=== PATIENT | male | born 1935 | race Caucasian/White ===

== ENCOUNTER 2018-05-14 19:59 | Emergency (ER) | payer MEDICARE, OTHER, SELFPAY ==
[2018-05-14 20:00] VITALS: BP 152/91; PULSE 69; PULSE 71; RESP 17; RESP 18; TEMP 36.9; O2SAT 96; O2SAT 97; BMI 27.3
--- NOTE | 2018-05-14 21:23 | CT_ITS ---
STUDY: CT BRAIN WITHOUT CONTRAST REASON FOR EXAM: Male, 82 years old. Confusion RADIATION DOSAGE (If Supplied By Facility): CTDIvol = ( 60.81 ) mGy, DLP = ( 998.67 ) mGycm TECHNIQUE: Transaxial CT imaging of the brain was performed without administration of intravenous contrast material. Individualized dose optimization techniques were used for this CT. COMPARISON: None. FINDINGS: Normal soft tissue structures. Normal calvarium. Prominent size ventricles and extra-axial spaces with mild atrophy. Bilateral white matter microangiopathic ischemic changes of the cerebral hemispheres. Normal basal ganglia and thalami. Normal brainstem. 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 There is no intracranial hemorrhage. There are no findings of an acute ischemic infarction. Normal visualized paranasal sinuses. CT/Brain/Head without Contrast IMPRESSION: Age-related and chronic changes of the brain. Electronically Signed: Osvaldo Dotson DO at 22:07 EST Tel [phone], Service support ,
--- NOTE | 2018-05-14 21:23 | EKG12_ITS ---
Test Reason : Blood Pressure : / mmHG Vent. Rate : 055 BPM Atrial Rate : 055 BPM P-R Int : 208 ms QRS Dur : 102 ms QT Int : 446 ms P-R-T Axes : 065 077 040 degrees QTc Int : 426 ms Sinus bradycardia with marked sinus arrhythmia Low voltage QRS Borderline ECG Confirmed by NAZARIO FORTE, MATTEO ([id number]), web content editor DINO POSEY ([id number]) on 05/17/2018 8:23:45 AM Referred By: STACEY Confirmed By:MATTEO LANGE MD
[2018-05-14 21:40] LABS: Squamous Epithelial Cells - UA 0 SEEN /hpf (0-5)
[2018-05-14 21:50] LABS: Color, Urine Yellow (Yellow); Glucose, Dipstick Normal (Normal); Ketone-Dipstick 5 mg/dl (Negative); Leukocyte Esterase-Dipstick 25 /ul (Negative); Nitrite-Dipstick Negative (Negative); Occult Blood-Urine 25 /ul (Negative); Protein-Dipstick 15 mg/dl (Negative); Specific Gravity, Urine 1.025 (1.002-1.030); Urine Bilirubin Dipstick Negative (Negative); Urine Clarity Clear (Clear); Urine Urobilinogen 1 mg/dl (Normal)
[2018-05-14 21:51] LABS: Absolute Neutrophil Count 4.9 X10^3/uL (2.0-7.7); Basophil# 0.02 X10^3/uL; Basophil% 0.3 % (0-1); Eosinophil# 0.11 X10^3/uL; Eosinophils% 1.5 % (0-5); Hematocrit 38.6 % (40-54); Hemoglobin 12.9 g/dl (13.0-16.5); Lymphocyte % 20.9 % (19-41); Mean Corp Hgb Conc 33.4 g/gl (32-36); Mean Corpuscular Hgb 30.8 pg (27.0-32.0); Mean Corpuscular Volume 92.1 fL (80-94); Mean Platelet Vol. 8.6 fl (6.2-12.0); Monocyte% 8.4 % (0-10); Neutrophil # 4.93 X10^3/uL (2.7-7.7); Neutrophil % 68.8 % (47-70); POSITIVE COUNT NO; POSITIVE DIFFERENTIAL NO; POSITIVE MORPHOLOGY NO; Platelet Count 194 K/mm3 (150-450); RBC Distribution Width CV 12.2 % (11.6-14.6); RBC Distribution Width SD 41.2 fl (35.1-43.9); Red Blood Count 4.19 M/mm3 (4.6-6.2); White Blood Count 7.2 K/mm3 (4.4-11.0)
[2018-05-14 22:00] LABS: Bacteria RARE /hpf (None Seen); Mucous, Urine RARE /hpf (<or=2+); Red Blood Cells-Urine 0-5 SEEN /hpf (0-5); White Blood Cells 0-5 SEEN /hpf (0-5)
[2018-05-14 22:08] LABS: AST(SGOT) 17 U/L (15-37); Alanine Aminotransfer ALT/SGPT 18 U/L (16-61); Albumin, Serum 3.8 g/dL (3.2-5.0); Alkaline Phosphatase 100 U/L (45-117); Anion Gap 9 (5-15); BUN 22 mg/dL (7-18); BUN/Creat Ratio 23.6 RATIO (10-20); Calcium,Total 9.1 mg/dL (8.5-10.1); Chloride 108 mmol/L (98-107); Creatinine, Serum 0.93 mg/dL (0.70-1.30); EST Glomerular Filtration Rate 83 mL/min (>60); Est Glom Filt Rate - Afr Amer 100 mL/min (>60); Estimated Creatinine Clearance 61.29 ml/min; Globulin 3.9 g/dL (2.2-4.2); Glucose 94 mg/dL (74-106); Potassium 3.8 mmol/L (3.5-5.1); Protein, Total 7.7 g/dL (6.4-8.2); Sodium Level 140 mmol/L (136-145)
[2018-05-14] MEDS: 0.9% Normal Saline 1,000 ML 150 ML IV (22:44)
[2018-05-14 22:46] VITALS: BP 124/105; PULSE 62; O2SAT 97
--- NOTE | 2018-05-14 23:56 | ED.VISSUMM ---
- ER Visit Summary Date of Service: 05/14/18 Chief Complaint: [Increased confusion] History of Present Illness: The patient is a 82 M [presents to the emergency department for increased confusion over the last 4 days. Patient has been slightly increased in agitation and at times has been wanting to leave the house without his pants on and has been knocking things over which she typically does not do. Patient does have a history of dementia. He has not been ill. No fever or cough. Patient denies any vomiting or diarrhea. Patient denies any chest pain or shortness of breath. Patient really has no complaints.] Physical Examination: [HEENT-PERRLA, EOMI. Cranial nerves II through XII grossly intact. TMs clear. Mucous membranes moist. No adenopathy. Patient is confused to place and time. Cardiovascular-regular rate and rhythm without murmur or ectopy Lungs-clear to auscultation, chest wall stable without crepitus or subcu emphysema Abdomen-normoactive bowel sounds, soft, nontender, no rebound or rigidity, no peritoneal signs. Extremities-intact ?4, normal range of motion, normal pulses, atraumatic] Test Results: [EKG obtained arrival shows sinus rhythm with a ventricular rate of 55 bpm with occasional PACs. CBC with differential showed a white count of 7.2, hemoglobin 12.9, hematocrit 39, platelets 194. Chemistries unremarkable. Urinalysis was normal. Troponin was slightly elevated 0.060. CT scan of the brain without contrast showed age-related changes.] Emergency Department Course and Treatment: [Findings discussed with patient's family and at this point is unclear why the slight elevation in the troponin however I recommended a 3-hour delta troponin as patient has no cardiac symptoms. Family would like to take the patient home if possible and would prefer to avoid admission given his dementia that typically gets worse when he is in unfamiliar places. At this point they feel they can continue to care for him at home and they do not feel placement to a [facility] is preferred.] Treatment Plan: [CARE patient will be turned over to evening physician awaiting delta troponin] Disposition: [Pending] Impression: [Dementia/confusion] This note was generated with [employer] software. It may contain incorrect words, spelling, and punctuation that were not noted in review of the chart prior to signing ED Disposition - Plan for ED Patient: Referrals: Edmar Hackett III, MD [Primary Care Provider] -
[2018-05-15] VITALS: PULSE 63; RESP 16; O2SAT 96
--- NOTE | 2018-05-15 | ED.DCSUM_ITS ---
- ER Visit Summary Date of Service: 05/14/18 Chief Complaint: [Increased confusion] History of Present Illness: The patient is a 82 M [presents to the emergency department for increased confusion over the last 4 days. Patient has been slightly increased in agitation and at times has been wanting to leave the house without his pants on and has been knocking things over which she typically does not do. Patient does have a history of dementia. He has not been ill. No fever or cough. Patient denies any vomiting or diarrhea. Patient denies any chest pain or shortness of breath. Patient really has no complaints.] Physical Examination: [HEENT-PERRLA, EOMI. Cranial nerves II through XII grossly intact. TMs clear. Mucous membranes moist. No adenopathy. Patient is confused to place and time. Cardiovascular-regular rate and rhythm without murmur or ectopy Lungs-clear to auscultation, chest wall stable without crepitus or subcu emphysema Abdomen-normoactive bowel sounds, soft, nontender, no rebound or rigidity, no peritoneal signs. Extremities-intact ?4, normal range of motion, normal pulses, atraumatic] Test Results: [EKG obtained arrival shows sinus rhythm with a ventricular rate of 55 bpm with occasional PACs. CBC with differential showed a white count of 7.2, hemoglobin 12.9, hematocrit 39, platelets 194. Chemistries unremarkable. Urinalysis was normal. Troponin was slightly elevated 0.060. CT scan of the brain without contrast showed age-related changes.] Emergency Department Course and Treatment: [Findings discussed with patient's family and at this point is unclear why the slight elevation in the troponin however I recommended a 3-hour delta troponin as patient has no cardiac symptoms. Family would like to take the patient home if possible and would prefer to avoid admission given his dementia that typically gets worse when he is in unfamiliar places. At this point they feel they can continue to care for him at home and they do not feel placement to a [facility] is preferred.] Treatment Plan: [CARE patient will be turned over to evening physician awaiting delta troponin] Disposition: [Pending] Impression: [Dementia/confusion] This note was generated with [employer] software. It may contain incorrect words, spelling, and punctuation that were not noted in review of the chart tomeka or to signing ED Disposition - Plan for ED Patient: Referrals: Edmar Hackett III, MD [Primary Care Provider] -
--- NOTE | 2018-05-15 01:12 | ED.RN ---
PT RESTLESS IN BED, EYES CLOSED, UNDRESSED, THROWS BLANKETS ON FLOOR, TANGLED IN IV LINE. FAMILY REMAINS AT BEDSIDE. HX OF DEMENTIA, WORSE PER FAMILY. REMAINS COOPERATIVE WITH CARE.
--- NOTE | 2018-05-15 02:19 | ED.DEP ---
ED Disposition - Plan for ED Patient: Instructions: ED Confusion Referrals: Edmar Hackett III, MD [Primary Care Provider] -
[2018-05-15 02:42] VITALS: BP 145/89; PULSE 63; RESP 16; O2SAT 95
== END 2018-05-15 02:43 | disposition home or self-care (01) ==
PROVIDERS: Emergency Provider Emergency Medicine; Family Provider Family Medicine; PCP Family Medicine
DX: F03.90 Unspecified dementia, unspecified severity, without behavioral disturbance, psychotic disturbance, mood disturbance, and anxiety (principal); R41.0 Disorientation, unspecified; R45.1 Restlessness and agitation; R74.8 Abnormal levels of other serum enzymes; I10 Essential (primary) hypertension; E03.9 Hypothyroidism, unspecified; Z79.899 Other long term (current) drug therapy
CPT/HCPCS: 70450; 80053; 81001; 84484; 85025; 93005; 99283

== ENCOUNTER → 2019-11-03 16:32 | Outpatient (CLI) | payer MEDICARE, OTHER, SELFPAY ==
[2019-11-03 15:52] VITALS: BMI 27.3
[2019-11-03 17:23] LABS: Absolute Lymphocyte Count 1.62 X10^3/uL (0.83-4.51); Basophil# 0.02 X10^3/uL; Basophil% 0.3 % (0-1); Eosinophil# 0.09 X10^3/uL; Eosinophils% 1.4 % (0-5); Hematocrit 38.3 % (40-54); Hemoglobin 12.4 g/dL (13.0-16.5); Lymphocyte # 1.62 X10^3/ul (4.0); Lymphocyte % 25.9 % (19-41); Mean Corp Hgb Conc 32.4 g/dL (32-36); Mean Corpuscular Hgb 30.8 pg (27.0-32.0); Mean Corpuscular Volume 95.3 fL (80-94); Mean Platelet Vol. 8.3 fl (6.2-12.0); Monocyte# 0.49 X10^3/uL; Monocyte% 7.8 % (0-10); NRBC Flagged by Analyzer 0 % (0-5); Neutrophil # 4.01 X10^3/uL (2.7-7.7); Neutrophil % 64.3 % (47-70); Platelet Count 249 K/mm3 (150-450); RBC Distribution Width CV 12.7 % (11.6-14.6); RBC Distribution Width SD 43.8 fl (35.1-43.9); Red Blood Count 4.02 M/mm3 (4.6-6.2); White Blood Count 6.3 K/mm3 (4.4-11.0)
[2019-11-03 17:43] LABS: ALB/GLOB Ratio 0.8 RATIO (0.9-2.4); AST(SGOT) 17 U/L (15-37); Alanine Aminotransfer ALT/SGPT 15 U/L (16-61); Albumin, Serum 3.5 g/dL (3.2-5.0); Alkaline Phosphatase 96 U/L (45-117); Amylase 74 U/L (25-115); Anion Gap 4 (5-15); BUN 18 mg/dL (7-18); BUN/Creat Ratio 18.8 RATIO (10-20); Calcium,Total 9.4 mg/dL (8.5-10.1); Chloride 106 mmol/L (98-107); Creatinine, Serum 0.96 mg/dL (0.70-1.30); EST Glomerular Filtration Rate 80 mL/min (>60); Est Glom Filt Rate - Afr Amer 97 mL/min (>60); Globulin 4.6 g/dL (2.2-4.2); Glucose 82 mg/dL (74-106); Potassium 4.2 mmol/L (3.5-5.1); Protein, Total 8.1 g/dL (6.4-8.2); Sodium Level 138 mmol/L (136-145)
[2019-11-03 17:50] LABS: Erythrocyte Sedimentation Rate 32 mm/hr (0-20)
[2019-11-06 14:00] LABS: H. PYLORI STOOL AG Negative (Negative)
== END ==
PROVIDERS: PCP Family Medicine; Referring Provider Surgery; Visit Provider Surgery
DX: R19.7 Diarrhea, unspecified (principal); K62.5 Hemorrhage of anus and rectum
CPT/HCPCS: 36415; 80053; 82150; 82274; 83630; 85025; 85652; 87177; 87209; 87493; 87506

== ENCOUNTER 2019-11-17 08:12 | Day surgery (SDC) | payer MEDICARE, OTHER, SELFPAY ==
[2019-11-03 15:52] VITALS: BMI 27.3
[2019-11-17] VITALS (7 sets, daily range): BP systolic 125–149; BP diastolic 76–89; PULSE 42–57; RESP 15–16; TEMP 36.3–37; O2SAT 95–99; BMI 24.8
[2019-11-17] MEDS: Lactated Ringers 1,000 ML 100 ML IV (08:45)
--- NOTE | 2019-11-17 08:48 | HP.PCM_ITS ---
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 Is patient in pain?: No Allergies erythromycin base Allergy (Unknown, Verified 11/03/19 15:48) Unknown memantine [From Namenda] Allergy (Unknown, Verified 11/03/19 15:48) Unknown rivastigmine [From Exelon] Allergy (Unknown, Verified 11/03/19 15:48) Unknown Medications Finasteride [Proscar] 5 mg PO DAILY #30 tab 01/24/13 [Rx Confirmed 11/03/19] Tamsulosin HCl [Flomax] 0.4 mg PO BID@0830,1730 #60 cap 01/24/13 [Rx Confirmed 11/03/19] Donepezil HCl [Aricept] 10 mg PO QHS 05/14/18 [History Confirmed 11/03/19] Levothyroxine [Synthroid] 100 mcg PO DAILY 05/14/18 [History Confirmed 11/03/19] Lisinopril [Zestril] 5 mg PO DAILY 05/14/18 [History Confirmed 11/03/19] Simvastatin [Zocor] 20 mg PO QHS 05/14/18 [History Confirmed 11/03/19] PFSH Medical History Diarrhea (Acute) Hyperlipemia (Acute) Hx of thyroid cancer (Acute) Dysmetabolic syndrome X (Acute) Dementia (Acute) Diabetes (Acute) Cataract (Acute) Carpal tunnel syndrome of right wrist (Acute) Arthritis (Acute) BPH (benign prostatic hypertrophy) (Chronic) Hypothyroidism (Chronic) Hypertension (Chronic) Surgical History Hx of colonoscopy (Acute) Hx of inguinal hernia repair (Acute) History of knee replacement (Acute) Hx of thyroidectomy (Acute) Hx of appendectomy (Acute) Family History Sister Colon cancer Mother Diabetes Brother Hypertension Social History (Updated 11/03/19 @ 16:[address] López Hackett MD) Smoking Status: Former smoker second hand exposure: No alcohol intake: never substance use type: does not use caffeine: Yes HPI HPI HPI: RADHA PIEDRA, is a 84 M who presents to the office today for surgical consultation regarding diarrhea and rectal pain. The patient is referred by his primary care physician Dr. Edmar Hackett III and written copy my surgical consult recommendations were returned to him. By the report of the the patient's had diarrhea for 17 days and rectal bleeding now for 16 days. He will have 1 to may be more bowel movements per day. There is been no fever. The patient is somewhat difficult to interact with because he has significant dementia. There is a family history of colon cancer in his sister. The patient's appetite appears to have slightly decreased. There is some concerned about the potential for dehydration. The patient did have a colonoscopy October 12, 2011. Multiple diverticula was seen in the sigmoid colon. The exam was otherwise normal. Apparently only on one occasion did the patient have abdominal pain recently and for that he was given [id number] medicine with resolution. He does not seem to be complaining of pain at this time. He has not had any previous abdominal surgery. He has not had any laboratory or stool analysis as of yet. About 3 weeks ago the patient's was COVID tested and was negative. The patient himself apparently is pretty well housebound. HPI HPI HPI: RADHA PIEDRA is a 84 M who presents to the office today for ROS General General: Yes weight change; no appetite, fatigue, colon cancer, breast cancer or weakness HEENT HEENT: No difficulty swallowing, eye injury, eye surgery, swollen glands or hoarseness Endo Endocrine: Yes thyroid cancer; no thyroid disease, diabetes mellitus, Hair loss, heat intolerance or cold intolerance Skin Skin: Yes changing moles; no rash Musc Musculoskeletal: Yes arthritis; no back problems, rheumatoid arthritis, gout or joint pain Cardio Cardiovascular: Yes high blood pressure; no murmur, pacemaker, heart disease, atrial fibrillation, heart attack, heart stent, palpitations, shortness of breat with exertion or chest pain Psych Psychiatric: No depression, anxiety or hearing voices Resp Respiratory: Yes shortness of breath, No sleep apnea, No cough, No COPD, No asthma, No emphysema, No wheezing Gastro Gastrointestinal: No abdominal pain, No nausea or vomiting, Yes diarrhea, No constipation, Yes blood in stool, No acid reflux, No hemorrhoids, No ulcers, No gallbladder problem, No black,tarry stools Pool Hematologic: No blood thinners, No blood disorders, Yes bleeding, No anemia, No blood clots Neuro Neurologic: No system reviewed and no additional complaints, except as docu, No as per HPI, No abnormal walking, No abnormal hearing, No abnormal movements, No abnormal speech, No behavioral changes, No burning sensations, No confusion, No seizure-like activity, No unsteadiness, No dizziness, No localized weakness, No frequent falls, No headache(s), No lack of coordination, No loss of vision, No memory loss, No numbness, No other visual disturbances, No radiating pain, No restless legs, No sensory deficit, No fainting, No tingling, No tremor(s), No weakness, No other Exam Const General: comfortable, no acute distress, well developed Nutritional Appearance: average body habitus Orientation: awake [facility] Head: normal to inspection Eyes General: appearance normal, both eyes and all related structures Chest Chest palpation & inspection: normal inspection of the chest Resp Effort & Inspection: normal respiratory effort Auscultation: clear to auscultation bilaterally Cardio Rate: regular rate Rhythm: regular rhythm Heart Sounds: no murmurs Bruits: no carotid bruits Other: Carotids are 3+ bilateral GI Palpation: soft, no hepatosplenomegaly Auscultation: normal bowel sounds Neuro Cognition: abnormal cognition Extrem General: no calf tenderness Psych Other: Patient is calm, he is able to respond to requests Assessment & Plan Problems 1. Diarrhea, unspecified type R19.7 2. Rectal bleeding K62.5 Plan Ongoing diarrhea and rectal bleeding of undetermined etiology. I would like to obtain laboratory complete metabolic profile and a CBC. I propose stool for analysis. Pending the results of that investigation then would consider a colonoscopy with possible biopsy or polypectomy as indicated. The patient's and family members are concerned about the patient's dementia possibly worsening with intervention. With that in mind we will obtain the laboratory and stool analysis will tentatively schedule him for the colonoscopy. If were able to come to a diagnosis with noninvasive means then we will cancel the colonoscopy. If his or family members at any point request that we cancel the colonoscopy we will do as requested. Obviously if the patient's diarrhea and rectal bleeding spontaneously ceases then we could really consider the options as well. They have had an opportunity to ask and have questions answered. I would gio harmon using monitored anesthesia care to try to limit the degree of adverse effect. Fortunately the [facility] is currently reporting a low local incidence of Covid-19. No guarantees of success have been offered however. I appreciate the opportunity of assisting with her surgical care Copy: Dr. Edmar Hackett, III López Hackett M.D., F.A.C.S. Coding Level of Care Code 57806 Diagnoses Diarrhea, unspecified type R19.7 ??Diarrhea type: unspecified type Rectal bleeding K62.5 Stool analysis was negative. Source for diarrhea unclear. Source of rectal bleeding not clear. Stool for Hemoccult was positive. After extensive discussion the family elected to proceed with colonoscopy with anticipated biopsy for definitive diagnosis. Procedure Criteria Procedure Type: Elective COVID Risk Discussion: The surgeon/proceduralist and patient have discussed in detail the risk of exposure to and/or potential harm posed by the COVID-19 virus with having a surgery/procedure at this time versus the risk of delaying the surgery/procedure. It is not possible to know either the risk of delaying the surgery or procedure or chance of getting an infection with perfect accuracy, but a joint decision was made between the patient and the surgeon/proceduralist to proceed at this time with the scheduled surgery/procedure as indicated on the consent form.
--- NOTE | 2019-11-17 09:15 | COLBX_PTH ---
PATIENT: RADHA PIEDRA LOC: EN U#:[id number] AGE/SX: 84/M ROOM: RE11/17/[address]: Dr. López Hackett MD : 1935 BED: DIS: 11/17/2019 SPEC #: [id number] RECD: 11/17/19 10:42 STATUS: KIA SOLERWes #: [id number] JULIA: 11/17/19 09:[address]: López Hackett DEPT: SURGICAL PATHOLOGY RECD BY: Oscar Tse ENTERED: 11/17/19 11:28 SP TYPE: COLON BX OT DR: Dr. Edmar Hackett III, MD Tissues: Descending colon Procedures: Surgery Specimen Level IV HEADER OPERATION: Colonoscopy (MAC) PRE-OP DIAGNOSIS: Rectal bleeding TISSUE SUBMITTED: Descending and sigmoid biopsy MICROSCOPIC DIAGNOSIS Descending and sigmoid colon biopsy: Moderate chronic active colitis. See microscopic description and comment. SJ:lars 8/18/20 COMMENT The findings are consistent with inflammatory bowel disease. Correlation with clinical, endoscopic findings and appropriate follow up are necessary. MICROSCOPIC DESCRIPTION Slides are reviewed. The specimen shows fragments of colonic mucosa with acute and chronic inflammatory cell infiltrates in the lamina propria, cryptitis, crypt abscesses and glandular distortion. Granulomas are not seen. No evidence of dysplasia. GROSS DESCRIPTION Received in fixative is one container labeled with the patient's name and designated descending and sigmoid colon biopsy. The specimen consists of multiple irregular fragments of light stern soft tissue that in aggregate measure 2 x 0.5 x 0.1 cm. The specimen is totally submitted in one cassette. / SJ:lars 11/17/19 TC:3 CPT: 61498
--- NOTE | 2019-11-17 10:03 | OP.COLON_ITS ---
Patient Name: Ifeanyi Dominguez Procedure Date: 11/17/2019 9:21 AM Date of : 1935 Age: 84 Procedure: Colonoscopy Indications: Clinically significant diarrhea of unexplained origin, Rectal bleeding Providers: López Hackett MD Referring MD: Edmar Hackett Iii Medicines: See the Anesthesia note for documentation of the administered medications Patient Profile: Last Colonoscopy: December 2011. Complications: No immediate complications. Procedure: Pre-Anesthesia Assessment: - Prior to the procedure, a History and Physical was performed, and patient medications and allergies were reviewed. The patient's tolerance of previous anesthesia was also reviewed. The risks and benefits of the procedure and the sedation options and risks were discussed with the patient. All questions were answered, and informed consent was obtained. Prior Anticoagulants: The patient has taken no previous anticoagulant or antiplatelet agents. ASA Grade Assessment: III - A patient with severe systemic disease. After reviewing the risks and benefits, the patient was deemed in satisfactory condition to undergo the procedure. After I obtained informed consent, the scope was passed under direct vision. Throughout the procedure, the patient's blood pressure, pulse, and oxygen saturations were monitored continuously. The Colonoscope was introduced through the anus and advanced to the hepatic flexure for evaluation. This was the intended extent. The colonoscopy was extremely difficult due to a redundant colon. Successful completion of the procedure was aided by applying abdominal pressure. The patient tolerated the procedure well. The quality of the bowel preparation was fair. Scope In: 9:32:11 AM Scope Withdrawal Time 0 hours 5 minutes 38 seconds Scope Out: 9:53:13 AM Total Procedure Duration Time 0 hours 21 minutes 2 seconds Findings: Hemorrhoids were found on perianal exam. Diffuse moderate inflammation characterized by erythema, friability and granularity was found in the rectum, in the sigmoid colon and in the descending colon. Biopsies were taken with a cold forceps for histology. Multiple diverticula were found in the sigmoid colon. The transverse colon and hepatic flexure appeared normal. Impression: - Preparation of the colon was fair. - Hemorrhoids found on perianal exam. - Diffuse moderate inflammation was found in the rectum, in the sigmoid colon and in the descending colon secondary to left-sided colitis. Biopsied. - Diverticulosis in the sigmoid colon. - The transverse colon and hepatic flexure are normal. Due to tortuosisty I could not get past the hepatic flexure. All right side of colon that was seen was normal. I purposely aborted as the active colitis is on the left in the descending/sigmoid and rectum. Recommendation: - Discharge patient to home. - Resume previous diet. - Continue present medications. - Flagyl (metronidazole) 500 mg PO TID for 1 week. - Repeat colonoscopy is not recommended due to current age (66 years or older) for screening purposes. Procedure Code(s): --- Professional --- 22009, 52, Colonoscopy, flexible; with biopsy, single or multiple Diagnosis Code(s): --- Professional --- K64.9, Unspecified hemorrhoids K51.50, Left sided colitis without complications R19.7, Diarrhea, unspecified K62.5, Hemorrhage of anus and rectum K57.30, Diverticulosis of large intestine without perforation or abscess without bleeding CPT copyright 2017 [employer]. All rights reserved. The codes documented in this report are preliminary and upon telephone operators supervisor review may be revised to meet current compliance requirements. López Hackett MD 11/17/2019 10:03:30 AM This report has been signed electronically. Number of Addenda: 0 Note Initiated On: 11/17/2019 9:21 AM
--- NOTE | 2019-11-17 10:04 | OP.CCLET_ITS ---
11/17/2019 Edmar Hackett [address] [place] [address] Re : Colonoscopy procedure for Ifeanyi Dominguez Dear Dr. Hackett This procedure was performed on Sunday, November 17, 2019. My impressions and recommendations are as follows: Impressions : - Preparation of the colon was fair. - Hemorrhoids found on perianal exam. - Diffuse moderate inflammation was found in the rectum, in the sigmoid colon and in the descending colon secondary to left-sided colitis. Biopsied. - Diverticulosis in the sigmoid colon. - The transverse colon and hepatic flexure are normal. Due to tortuosisty I could not get past the hepatic flexure. All right side of colon that was seen was normal. I purposely aborted as the active colitis is on the left in the descending/sigmoid and rectum. Recommendations : - Discharge patient to home. - Resume previous diet. - Continue present medications. - Flagyl (metronidazole) 500 mg PO TID for 1 week. - Repeat colonoscopy is not recommended due to current age (66 years or older) for screening purposes. My findings are described in the full procedure note, which is enclosed. If I can be of further assistance, please feel free to contact me at Doctor phone number(s): Work: . Sincerely, López Hackett MD 11/17/2019 10:03:30 AM This report has been signed electronically.
== END 2019-11-17 11:10 | disposition home or self-care (01) ==
LOC: EN 08:14 → AC 08:16
PROVIDERS: Anesthesiology; PCP Family Medicine; Referring Provider Family Medicine; Visit Provider Surgery
PROC: 0DJD8ZZ Inspection of Lower Intestinal Tract, Via Natural or Artificial Opening Endoscopic (ICD-10-PCS; CPT 45378; principal; 2019-11-17 09:10)
DX: K51.511 Left sided colitis with rectal bleeding (principal); K57.30 Diverticulosis of large intestine without perforation or abscess without bleeding; Q43.8 Other specified congenital malformations of intestine; K64.9 Unspecified hemorrhoids; Z11.59 Encounter for screening for other viral diseases; E11.9 Type 2 diabetes mellitus without complications; I10 Essential (primary) hypertension; E78.5 Hyperlipidemia, unspecified; E03.9 Hypothyroidism, unspecified; E88.81 Metabolic syndrome and other insulin resistance; M19.90 Unspecified osteoarthritis, unspecified site; N40.0 Benign prostatic hyperplasia without lower urinary tract symptoms; F03.90 Unspecified dementia, unspecified severity, without behavioral disturbance, psychotic disturbance, mood disturbance, and anxiety; Z79.899 Other long term (current) drug therapy; Z85.850 Personal history of malignant neoplasm of thyroid; Z87.891 Personal history of nicotine dependence; Z80.0 Family history of malignant neoplasm of digestive organs
CPT/HCPCS: 45380; 87635; 88305; 94799; J7120; U0003